=== PATIENT | female | born 1965 | race Caucasian/White ===

== ENCOUNTER → 2019-10-26 | Outpatient (CLI) | payer BC ==
[~2019-10-26] MED LIST: CLONIDINE HCL0.2 MG; CYMBALTA; IBUPROFEN; NEXIUM40 MG; PREMPRO 0.3 MG1 EACH; THYROID
== END ==
LOC: MAMMO 12:24
PROVIDERS: ATTEND Family Medicine
DX: Z12.31 Encounter for screening mammogram for malignant neoplasm of breast (principal)
CPT/HCPCS: 77067